=== PATIENT | male | born 1985 | race Hispanic/Latino ===

== ENCOUNTER 2022-12-06 16:28 | Emergency (ER) | payer OTHER ==
[~2022-12-06] VITALS: Ht 180.3 cm; Wt 136.1 kg
[2022-12-06 17:23] LABS: HEMATOCRIT 43.3 % (42-54); MEAN CORPUSCULAR HEMOGLOBIN 26.4 pg (27.0-33.0); PLATELET COUNT (AUTO) 248 K/uL (130-400); RED BLOOD CELL COUNT(AUTO) 5.41 MIL/uL (4.50-6.20); WHITE BLOOD COUNT (AUTO) 7.4 K/uL (4.8-10.8)
[2022-12-06] MEDS ORDERED: AMLODIPINE 5 MG TAB PO ONE (17:30)
[2022-12-06 17:35] LABS: CREATININE 0.9 mg/dL (0.5-1.5); POTASSIUM 3.1 mmol/L (3.5-5.1)
[2022-12-06 17:46] LABS: ALBUMIN 3.4 g/dL (3.5-5.0); BILIRUBIN,TOTAL 0.7 mg/dL (0.2-1.0); TOTAL PROTEIN, SERUM 7.2 g/dL (6.0-8.3)
[2022-12-06 18:08] LABS: BASOPHILS % (MANUAL) 1 % (0-2); EOSINOPHILS % (MANUAL) 2 % (1-6); LYMPHOCYTES % (MANUAL) 25 % (22-44); MONOCYTES % (MANUAL) 10 % (2-9); SEGMENTED NEUTROPHILS % 62 % (40-70); TOTAL CELLS COUNTED 100
[2022-12-06 18:11] LABS: MAN.DIFF COMMENT-IMPRESSION MANUAL DIFFERENTIAL
[2022-12-06 18:12] LABS: PLATELET MORPHOLOGY COMMENT ADEQUATE
[2022-12-06] MEDS ORDERED: IBUPROFEN 600 MG TABLET PO ONE (19:30)
[2022-12-06] MEDS ORDERED: POTASSIUM BICARB/CIT AC 25 MEQ TABLET.EFF PO ONE (19:30)
[2022-12-06 21:27] VITALS: BP 174/98; PULSE 99; RESP 19; O2SAT 98
== END 2022-12-06 21:28 | disposition home or self-care (01) ==
LOC: EDH 16:28
DX: S83.8X1A Sprain of other specified parts of right knee, initial encounter (principal); S39.012A Strain of muscle, fascia and tendon of lower back, initial encounter; E87.6 Hypokalemia; W18.39XA Other fall on same level, initial encounter; Y93.89 Activity, other specified; Y92.89 Other specified places as the place of occurrence of the external cause; Y99.8 Other external cause status
CPT/HCPCS: 36415; 73502; 73562; 80053; 84484; 85025; 93005

== ENCOUNTER → 2024-08-20 | Outpatient (CLI) | payer MEDICAID, MEDICARE | END | disposition home or self-care (01) | LOC: SHCH 15:48 | PROVIDERS: ATTEND Student in an Organized Health Care Education/Training Program | DX: I07.1 Rheumatic tricuspid insufficiency (principal); R00.0 Tachycardia, unspecified | CPT/HCPCS: 93306 ==